=== PATIENT | female | born 1980 | race American Indian/Alaskan Native ===

== ENCOUNTER 2017-07-06 01:38 | Emergency (ER) | payer BC ==
[2017-07-06 01:58] VITALS: BP 145/86
== END 2017-07-06 01:54 | disposition left against medical advice (07) ==
LOC: ED 01:38
DX: T50.905A Adverse effect of unspecified drugs, medicaments and biological substances, initial encounter (principal); Z53.21 Procedure and treatment not carried out due to patient leaving prior to being seen by health care provider